=== PATIENT | female | born 1975 | race Caucasian/White ===

== ENCOUNTER 2016-08-10 17:32 | Emergency (ER) | payer SELFPAY ==
[~2016-08-10] VITALS: Ht 162.6 cm; Wt 100.0 kg
[2016-08-10] MEDS ORDERED: NAPR220T57 PO (17:45)
[2016-08-10 18:21] LABS: APPEARANCE,URINE CLOUDY (CLEAR); GLUCOSE, URINE (UA) NEGATIVE (NEGATIVE); KETONES,URINE NEGATIVE (NEGATIVE); LEUKOCYTE ESTERASE ,URINE MODERATE (NEGATIVE); PH,URINE 6.5 (5.0-8.0); PROTEIN,URINE TRACE (NEGATIVE)
[2016-08-10 18:39] LABS: ADD UA MICROSCOPIC YES; OCCULT BLOOD,URINE MODERATE (NEGATIVE)
[2016-08-10 18:40] LABS: SQUAMOUS EPITHELIAL CELL,UR Moderate /LPF (None Seen); WBC,URINE 26-50 /HPF (0-5)
[2016-08-10 20:37] VITALS: BP 125/67
[2016-08-10] MEDS ORDERED: SULFAMETHOX/TRIMETH DS 800-160 MG/TABLET PO ONE (21:15)
[2016-08-10] MEDS ORDERED: PHENAZOPYRIDINE HCL 100 MG TABLET PO ONE (21:15)
[2016-08-10] MEDS ORDERED: HYDROCODONE/ACETAMINOPHEN 5-325 MG TABLET PO ONE (21:15)
[2016-08-10] MEDS ORDERED: CefTRIAXone SODIUM 1 GM/VIAL IM ONE (21:30)
[2016-08-10] MEDS ORDERED: LIDOCAINE HCL/PF 1% 2 ML VIAL IM ONE (21:30)
== END 2016-08-10 21:51 | disposition home or self-care (01) ==
LOC: EMS 17:35
DX: N39.0 Urinary tract infection, site not specified (principal); F15.90 Other stimulant use, unspecified, uncomplicated
CPT/HCPCS: 81001; 84703; 87077; 87086; 87186; 96372; 99284; J0696; J3490

== ENCOUNTER 2018-04-01 06:19 | Inpatient (IN) | payer MEDICAID ==
[~2018-04-01] VITALS: Ht 162.6 cm; Wt 100.0 kg
[~2018-04-01 06:19] MED LIST: NAPR220T57 PO
[2018-04-01] MEDS ORDERED: VANCOMYCIN HCL 1 GM/D5% WATER 200 ML IV ONE (07:30)
[2018-04-01] MEDS ORDERED: KETOROLAC TROMETHAMINE 30 MG/ML VIAL IVP ONE (07:30)
[2018-04-01 07:36] LABS: BASOPHILS % (AUTO) 0.2 % (0.0-2.0); EOSINOPHILS % (AUTO) 0.4 % (1.0-6.0); HEMATOCRIT 34.1 % (36-46); HEMOGLOBIN 11.6 g/dL (12.0-16.0); MEAN CORPUSCULAR HEMOGLOBIN 27.9 pg (26.0-34.0); MEAN CORPUSCULAR HGB CONC 33.9 G/dL (31.0-37.0); MEAN CORPUSCULAR VOLUME 82 fL (80-100); MONOCYTES # (AUTO) 0.7 K/uL (0.1-1.0); MONOCYTES % (AUTO) 6.2 % (2.0-9.0); NEUTROPHILS # (AUTO) 10.4 K/uL (1.8-7.7); PLATELET COUNT (AUTO) 297 K/uL (150-450); RED BLOOD CELL COUNT(AUTO) 4.16 MIL/uL (4.00-5.20); RED CELL DISTRIBUTION WIDTH 14.9 % (11.5-14.5)
[2018-04-01 07:38] LABS: NEUTROPHILS % (AUTO) 85.2 % (40.0-70.0)
[2018-04-01 07:39] LABS: ANION GAP 7 mmol/L (8-16); CALCIUM, TOTAL 8.8 mg/dL (8.8-10.5); CARBON DIOXIDE 29 mmol/L (22-29); CHLORIDE 103 mmol/L (98-107); CREATININE 0.93 mg/dL (0.60-1.30); GLOMERULAR FILTR. RATE CALC > 60 mL/min (>60); GLUCOSE,RANDOM 87 mg/dL (70-110); POTASSIUM 3.1 mmol/L (3.5-5.1); SODIUM SERUM 139 mmol/L (136-145); UREA NITROGEN, BLOOD 9 mg/dL (7-18)
[2018-04-01 07:44] LABS: ALANINE AMINOTRANSFERASE 19 U/L (12-78); ALBUMIN 3.5 g/dL (3.4-5.0); ALKALINE PHOSPHATASE 88 U/L (46-116); ASPARTATE AMINOTRANSFERASE 17 U/L (15-37); BILIRUBIN,TOTAL 1.3 mg/dL (0.1-1.0); TOTAL PROTEIN, SERUM 7.7 g/dL (6.4-8.2)
[2018-04-01 07:47] LABS: LACTIC ACID 0.6 mmol/L (0.4-2.0)
[2018-04-01 07:58] LABS: B-TYPE NATRIURETIC PEPTIDE 56 pg/mL (0-100)
[2018-04-01] MEDS ORDERED: POTASSIUM CHLORIDE 20 MEQ ER TABLET PO ONE (08:15)
[2018-04-01] MEDS ORDERED: IOVERSOL 320 MG/ML 100 ML VIAL ONE (08:20)
[2018-04-01] MEDS ORDERED: SODIUM CHLORIDE 0.9% 100 ML ONE (08:20)
[2018-04-01] MEDS ORDERED: ONDANSETRON HCL 4 MG/2 ML VIAL IVP PRN ×2 (09:45→12:00)
[2018-04-01] MEDS ORDERED: 0.9% SODIUM CHLORIDE 10 ML SYRINGE IVP PRN (09:45)
[2018-04-01] MEDS ORDERED: ACETAMINOPHEN 325 MG TABLET PO PRN ×2 (09:45→12:00)
[2018-04-01 10:52] VITALS: BP 127/83
[2018-04-01] MEDS ORDERED: ZOLPIDEM TARTRATE 5 MG TABLET PO PRN (12:00)
[2018-04-01] MEDS ORDERED: BISACODYL 10 MG RECTAL RECTAL SUPPOSITORY PR PRN (12:00)
[2018-04-01] MEDS ORDERED: MORPHINE SULFATE 2 MG/ML SYRINGE IVP PRN (12:00)
[2018-04-01] MEDS ORDERED: MAGNESIUM HYDROXIDE SUSPENSION 30 ML UDCUP PO PRN (12:00)
[2018-04-01] MEDS: HYDROCODONE/ACETAMINOPHEN 5-325 MG TABLET PO PRN ×2 (12:10→20:12)
[2018-04-01 12:34] VITALS: BP 125/80
[2018-04-01] MEDS: PIPERACILLIN/TAZO 3.375 GM/D5W 50 ML IV SCH ×2 (13:10→20:12)
[2018-04-01] MEDS ORDERED: SODIUM CHLORIDE 0.9% 500 ML IV ONE (13:11)
[2018-04-01 16:14] VITALS: BP 112/79
[2018-04-01 19:22] VITALS: BP 114/51
[2018-04-01] MEDS: VANCOMYCIN HCL 1.5 GM in DEXTROSE 5%-WATER 250 ML IV SCH (20:11)
[2018-04-01] MEDS: DOCUSATE SODIUM 100 MG CAPSULE PO SCH (20:12)
[2018-04-02] VITALS (7 sets, daily range): BP systolic 106–138; BP diastolic 57–88
[2018-04-02] MEDS: PIPERACILLIN/TAZO 3.375 GM/D5W 50 ML IV SCH ×4 (00:21→18:13)
[2018-04-02 05:55] LABS: ANION GAP 7 mmol/L (8-16); CALCIUM, TOTAL 8.7 mg/dL (8.8-10.5); CARBON DIOXIDE 27 mmol/L (22-29); CHLORIDE 103 mmol/L (98-107); CREATININE 0.86 mg/dL (0.60-1.30); GLOMERULAR FILTR. RATE CALC > 60 mL/min (>60); GLUCOSE,RANDOM 87 mg/dL (70-110); POTASSIUM 3.4 mmol/L (3.5-5.1); SODIUM SERUM 137 mmol/L (136-145); UREA NITROGEN, BLOOD 7 mg/dL (7-18)
[2018-04-02] MEDS: DOCUSATE SODIUM 100 MG CAPSULE PO SCH ×2 (08:07→21:00)
[2018-04-02] MEDS: PANTOPRAZOLE SODIUM 40 MG DR TABLET PO SCH (08:07)
[2018-04-02] MEDS: HYDROCODONE/ACETAMINOPHEN 5-325 MG TABLET PO PRN ×3 (08:07→22:58)
[2018-04-02] MEDS: VANCOMYCIN HCL 1.5 GM in DEXTROSE 5%-WATER 250 ML IV SCH ×2 (08:07→21:38)
[2018-04-02] MEDS ORDERED: SODIUM CHLORIDE 0.9% 500 ML IV ONE (08:09)
[2018-04-02] MEDS ORDERED: POTASSIUM CHL 10 MEQ/WATER 50 ML IV PRN (19:30)
[2018-04-02] MEDS: POTASSIUM CHLORIDE 20 MEQ ER TABLET PO PRN (23:02)
[2018-04-03] MEDS: PIPERACILLIN/TAZO 3.375 GM/D5W 50 ML IV SCH ×4 (00:14→18:30)
[2018-04-03] MEDS: HYDROCODONE/ACETAMINOPHEN 5-325 MG TABLET PO PRN ×3 (03:37→22:01)
[2018-04-03 03:45] VITALS: BP_SYST 122; BP_SYST 149; BP_DIAS 60; BP_DIAS 84
[2018-04-03 06:17] LABS: BASOPHILS % (AUTO) 0.5 % (0.0-2.0); EOSINOPHILS % (AUTO) 1.1 % (1.0-6.0); HEMATOCRIT 32.5 % (36-46); HEMOGLOBIN 11.1 g/dL (12.0-16.0); LYMPHOCYTES # (AUTO) 1.6 K/uL (1.0-4.8); LYMPHOCYTES % (AUTO) 15.3 % (22.0-44.0); MEAN CORPUSCULAR HEMOGLOBIN 28.1 pg (26.0-34.0); MEAN CORPUSCULAR HGB CONC 34.1 G/dL (31.0-37.0); MEAN CORPUSCULAR VOLUME 82 fL (80-100); MONOCYTES # (AUTO) 0.9 K/uL (0.1-1.0); MONOCYTES % (AUTO) 8.9 % (2.0-9.0); NEUTROPHILS # (AUTO) 7.6 K/uL (1.8-7.7); NEUTROPHILS % (AUTO) 74.2 % (40.0-70.0); PLATELET COUNT (AUTO) 301 K/uL (150-450); RED BLOOD CELL COUNT(AUTO) 3.95 MIL/uL (4.00-5.20); RED CELL DISTRIBUTION WIDTH 14.5 % (11.5-14.5)
[2018-04-03 06:33] LABS: CALCIUM, TOTAL 8.4 mg/dL (8.8-10.5); CREATININE 1.04 mg/dL (0.60-1.30); POTASSIUM 3.9 mmol/L (3.5-5.1); VANCOMYCIN,RANDOM 18.7 mcg/mL (25.0-50.0)
[2018-04-03 07:40] VITALS: BP 112/66
[2018-04-03] MEDS: PANTOPRAZOLE SODIUM 40 MG DR TABLET PO SCH (07:50)
[2018-04-03] MEDS: DOCUSATE SODIUM 100 MG CAPSULE PO SCH ×3 (07:50→20:01)
[2018-04-03] MEDS: VANCOMYCIN HCL 1.5 GM in DEXTROSE 5%-WATER 250 ML IV SCH ×2 (07:51→20:01)
[2018-04-03 11:54] VITALS: BP 131/71
[2018-04-03 15:37] VITALS: BP 134/80
[2018-04-03 19:45] VITALS: BP 129/84
[2018-04-03 23:45] VITALS: BP 141/77
[2018-04-04] MEDS: PIPERACILLIN/TAZO 3.375 GM/D5W 50 ML IV SCH ×3 (01:04→12:37)
[2018-04-04 04:33] VITALS: BP 114/78
[2018-04-04] MEDS: HYDROCODONE/ACETAMINOPHEN 5-325 MG TABLET PO PRN (04:43)
[2018-04-04 06:26] LABS: CALCIUM, TOTAL 8.4 mg/dL (8.8-10.5); CREATININE 1.1 mg/dL (0.60-1.30); POTASSIUM 3.4 mmol/L (3.5-5.1)
[2018-04-04] MEDS ORDERED: SODIUM CHLORIDE 0.9% 500 ML IV ONE (06:33)
[2018-04-04 08:10] VITALS: BP 119/76
[2018-04-04] MEDS: VANCOMYCIN HCL 1.5 GM in DEXTROSE 5%-WATER 250 ML IV SCH (08:38)
[2018-04-04] MEDS: PANTOPRAZOLE SODIUM 40 MG DR TABLET PO SCH (08:39)
[2018-04-04] MEDS: DOCUSATE SODIUM 100 MG CAPSULE PO SCH (08:39)
[2018-04-04] MEDS ORDERED: POTASSIUM CHL 10 MEQ/WATER 50 ML IV PRN (11:00)
[2018-04-04] MEDS ORDERED: POTASSIUM CHLORIDE 20 MEQ ER TABLET PO PRN (11:00)
[2018-04-04 11:59] VITALS: BP 115/78
[2018-04-04] MEDS: POTASSIUM CHLORIDE 20 MEQ ER TABLET PO PRN (12:37)
[2018-04-05] MEDS ORDERED: CHLORHEXIDINE GLUCONATE 4% 118 ML TOPICAL LIQUID TP SCH (09:00)
[2018-04-05] MEDS ORDERED: MUPIROCIN CALCIUM 2% 22 GM OINTMENT TP SCH (09:00)
== END 2018-04-04 14:45 | disposition left against medical advice (07) | DRG 383 ==
LOC: EMS 06:26 → 4E 09:47
PROVIDERS: ADMIT Internal Medicine; ATTEND Internal Medicine
DX: L03.211 Cellulitis of face (principal); B95.62 Methicillin resistant Staphylococcus aureus infection as the cause of diseases classified elsewhere; L03.213 Periorbital cellulitis; D64.9 Anemia, unspecified; E66.9 Obesity, unspecified; E87.6 Hypokalemia; Z53.21 Procedure and treatment not carried out due to patient leaving prior to being seen by health care provider; Z59.0 Homelessness; Z91.19 Patient's noncompliance with other medical treatment and regimen; Z98.51 Tubal ligation status; Z68.37 Body mass index [BMI] 37.0-37.9, adult
CPT/HCPCS: 70491; 83605; 87040; 87070; 87081; 87205; 96365; 96366; 96375; 99285; J1885; J2270; J2543; J3370; J7040; J7050; J7060

== ENCOUNTER 2019-08-01 10:09 | Emergency (ER) | payer MEDICAID ==
[~2019-08-01] VITALS: Ht 162.6 cm; Wt 113.6 kg
[2019-08-01] MEDS ORDERED: IBUPROFEN 800 MG TABLET PO ONE (11:45)
[2019-08-01] MEDS ORDERED: IPRATROPIUM BROMIDE 0.5 MG/2.5 ML NEB SOLUTION NEB ONE (11:45)
[2019-08-01] MEDS ORDERED: ALBUTEROL SULFATE 2.5 MG/0.5 ML NEB SOLUTION NEB ONE (11:45)
[2019-08-01 13:38] VITALS: BP 119/82
== END 2019-08-01 13:40 | disposition home or self-care (01) ==
LOC: EMS 10:13
DX: R05 Cough (principal); R11.0 Nausea; R53.81 Other malaise; R50.9 Fever, unspecified; R06.02 Shortness of breath; F15.90 Other stimulant use, unspecified, uncomplicated; Z98.51 Tubal ligation status; Z98.890 Other specified postprocedural states
CPT/HCPCS: 94640

== ENCOUNTER 2024-01-18 15:48 | Emergency (ER) | payer MEDICAID ==
[~2024-01-18] VITALS: Ht 162.6 cm; Wt 100.0 kg
[2024-01-18 15:50] VITALS: BP 123/79; PULSE 98; RESP 20; TEMP 98
[2024-01-18 16:13] LABS: COVID AG,FIA SOURCE NASAL SWAB
[2024-01-18 16:40] LABS: INFLUENZA TYPE A NEGATIVE FOR TYPE A (NEGATIVE); INFLUENZA TYPE B NEGATIVE FOR TYPE B (NEGATIVE); SARS-COV2 (COVID) ANTIGEN,FIA Negative (Negative)
[2024-01-18] MEDS: KETOROLAC TROMETHAMINE 30 MG/ML VIAL IVP ONE (16:49)
[2024-01-18] MEDS: SODIUM CHLORIDE 0.9% 2,000 ML IV ONE (16:49)
[2024-01-18] MEDS: ACETAMINOPHEN 500 MG TABLET PO ONE (16:49)
[2024-01-18] MEDS: ONDANSETRON HCL 4 MG/2 ML VIAL IVP ONE (16:49)
[2024-01-18 16:56] LABS: BASOPHILS % (AUTO) 0.5 % (0.0-2.0); EOSINOPHILS % (AUTO) 0.7 % (1.0-6.0); HEMATOCRIT 38.1 % (36-46); HEMOGLOBIN 12.7 g/dL (12.0-16.0); LYMPHOCYTES % (AUTO) 12.1 % (22.0-44.0); MEAN CORPUSCULAR HEMOGLOBIN 28.8 pg (26.0-34.0); MEAN CORPUSCULAR HGB CONC 33.4 G/dL (31.0-37.0); MEAN CORPUSCULAR VOLUME 87 fL (80-100); MONOCYTES # (AUTO) 0.5 K/uL (0.1-1.0); MONOCYTES % (AUTO) 6.4 % (2.0-9.0); NEUTROPHILS # (AUTO) 6.4 K/uL (1.8-7.7); NEUTROPHILS % (AUTO) 80.3 % (40.0-70.0); PLATELET COUNT (AUTO) 311 K/uL (150-450); RED BLOOD CELL COUNT(AUTO) 4.41 MIL/uL (4.00-5.20); RED CELL DISTRIBUTION WIDTH 13.2 % (11.5-14.5)
[2024-01-18 17:09] LABS: CALCIUM, TOTAL 8.8 mg/dL (8.8-10.5); CREATININE 1.1 mg/dL (0.60-1.30); POTASSIUM 3.2 mmol/L (3.5-5.1)
[2024-01-18] MEDS: POTASSIUM CHLORIDE 20 MEQ ER TABLET PO ONE (17:53)
[2024-01-18] MEDS ORDERED: IBUP-1554 PO (18:05)
[2024-01-18] MEDS ORDERED: ACET-66 PO (18:05)
== END 2024-01-18 18:21 | disposition home or self-care (01) ==
LOC: EMS 15:48
DX: J06.9 Acute upper respiratory infection, unspecified (principal); E87.6 Hypokalemia; F15.90 Other stimulant use, unspecified, uncomplicated; Z98.51 Tubal ligation status; Z98.890 Other specified postprocedural states; Z20.822 Contact with and (suspected) exposure to COVID-19
CPT/HCPCS: 99284; 96374; 96361; 96375; 87426; 80048; 84703; 85025; 87804; 36415; 93005; J1885; J2405; J7030

== ENCOUNTER 2024-12-07 17:15 | Emergency (ER) | payer MEDICAID ==
[~2024-12-07] VITALS: Ht 162.6 cm; Wt 90.0 kg
[~2024-12-07 17:15] MED LIST changes: +ACET-66 PO; +IBUP-1554 PO; -NAPR220T57 PO
[2024-12-07 17:29] VITALS: TEMP 97.9
[2024-12-07 18:15] VITALS: BP 131/59; PULSE 88; RESP 20; O2SAT 98
[2024-12-07] MEDS: IBUPROFEN 400 MG TABLET PO ONE (18:59)
[2024-12-07] MEDS: ACETAMINOPHEN 500 MG TABLET PO ONE (19:00)
[2024-12-07] MEDS: LIDOCAINE 5% TRANSDERMAL PATCH TD ONE (19:00)
== END 2024-12-07 19:11 | disposition home or self-care (01) ==
LOC: EMS 17:15
DX: R07.81 Pleurodynia (principal); F15.90 Other stimulant use, unspecified, uncomplicated; Z98.51 Tubal ligation status; Z98.890 Other specified postprocedural states; Z72.89 Other problems related to lifestyle
CPT/HCPCS: 71100; 99284; Z7502; Z7610